=== PATIENT | female | born 1950 | race Caucasian/White ===

== ENCOUNTER → 2016-12-05 | Outpatient (CLI) | payer MEDICARE, OTHER ==
[~2016-12-05] MED LIST: AMOX-355 PO; CA C1TAB26 PO; CLCX200C PO; CTLP20T PO; HYDR200T46 PO; LANS30CA PO; LEVO175T2 PO; LIOT5TAB6 PO; MNTL10T PO; MODA200T PO; MTF500T PO; NF-ESOM40C PO; SMTR50T PO; TOLTA4 PO; TPR100T PO; TRAM50TA2 PO; [UNRECOGNIZED DRUG - OTHER] PO
== END ==
DX: I49.9 Cardiac arrhythmia, unspecified (principal)